=== PATIENT | male | born 1960 | race Caucasian/White ===

== ENCOUNTER 2020-01-30 09:29 | Emergency (ER) | payer BC, MEDICARE ==
[~2020-01-30] VITALS: Ht 170.2 cm; Wt 55.4 kg
[2020-01-30] MEDS ORDERED: IOHEXOL 350 MG/ML 100 ML VIAL. IV ONE (09:45)
--- NOTE | 2020-01-30 09:47 | RAD ---
EXAM: Head CT without contrast. HISTORY: Code stroke. TECHNIQUE: Computed tomographic images of the head were obtained without contrast. *One or more of the following individualized dose reduction techniques were utilized for this examination: 1. Automated exposure control. 2. Adjustment of the mA and/or kV according to patient size. 3. Use of iterative reconstruction technique. COMPARISON: None. FINDINGS: There is no acute or subacute extra-axial or intraparenchymal hemorrhage. There is no mass effect or midline shift. There is no hydrocephalus. There are areas of decreased attenuation within the cerebral white matter, nonspecific and likely related to chronic small vessel disease. The visualized portions of the orbits, paranasal sinuses and mastoid air cells are unremarkable. No suspicious calvarial lesion is seen. IMPRESSION: 1. No acute intracranial finding. Note is made that MRI is more sensitive for acute infarction. 2. Bilateral cerebral white matter changes, most commonly due to chronic small vessel disease in patients of this age. Findings were communicated to Dr. Luu in the ED at 0940 hours on 01/30/2020. Electronically signed by: Crystal Quezada MD (01/30/2020 9:44 AM) [id number]
[2020-01-30 10:31] LABS: BASO % 1 % (0-3); EOS # 0.3 x10^3/uL (0.0-0.7); EOS % 3 % (0-3); HEMATOCRIT 50.1 % (39.0-53.0); HEMOGLOBIN 16.5 g/dL (13.0-17.5); LYMPH # 2.6 x10^3/uL (1.0-4.8); LYMPH % 32 % (24-48); MEAN CORPUSCULAR HEMOGLOBIN 29 pg (25-35); MEAN CORPUSCULAR HGB CONC 33 g/dL (31-37); MEAN CORPUSCULAR VOLUME 87 fL (79-100); MONO # 0.6 x10^3/uL (0.0-1.1); MONO % 8 % (0-9); NEUT # 4.4 x10^3uL (1.8-7.7); NEUT % 56 % (31-73); PLATELET COUNT 328 x10^3/uL (140-400); RED BLOOD COUNT 5.76 x10^6/uL (4.30-5.70); RED CELL DISTRIBUTION WIDTH 14.6 % (11.5-14.5); WHITE BLOOD COUNT 7.9 x10^3/uL (4.0-11.0)
[2020-01-30 10:45] LABS: CALCIUM 9.4 mg/dL (8.5-10.1); CREATININE 1.4 mg/dL (0.7-1.3); GFR 51.7; POTASSIUM 4.3 mmol/L (3.5-5.1)
[2020-01-30 10:58] LABS: ALBUMIN 3.2 g/dL (3.4-5.0); ALBUMIN/GLOBULIN RATIO 0.8 (1.0-1.7)
--- NOTE | 2020-01-30 11:03 | RAD ---
EXAM: CT Angiogram of the Head and Neck INDICATION: Reason: stroke, SLURRED SPEECH / Spl. Instructions: dont wait on labs per dr san / History: TECHNIQUE: CT images were obtained through the head per standard CTA protocol. Multiplanar and 3D reformatted images were generated from the CT dataset on an independent workstation. All CT scans performed at this facility utilize dose optimization techniques as appropriate to the exam, including the following: Automated exposure control and adjustment of the mA and/or KV according to patient size (this includes techniques or standardized protocols for targeted exams where dose is indication/reason for exam). IV CONTRAST: Administered COMPARISON: Noncontrast head CT same day FINDINGS: CTA HEAD: No high-grade large vessel stenosis, proximal or branch vessel occlusion, aneurysm, or vascular malformation. ANTERIOR CIRCULATION: Anterior and middle cerebral arteries are widely patent. ANTERIOR COMMUNICATING ARTERY: Patent. POSTERIOR COMMUNICATING ARTERIES: Present bilaterally and patent. POSTERIOR CIRCULATION: Vertebral and basilar arteries are widely patent. Bilateral posterior inferior cerebellar arteries (PICAs), anterior inferior cerebellar arteries (AICAs), and superior cerebellar arteries (SCAs) are visualized and patent. OTHER: No abnormal brain parenchymal enhancement. The paranasal sinuses, mastoid air cells, and tympanic cavities are clear. NECK CTA: AORTA: 3 vessel configuration of arch. No dissection or acute aortic injury. No hemodynamically significant great vessel origin stenosis. RIGHT CAROTID: Common and internal carotid arteries are widely patent, without evidence of flow limiting stenosis or dissection. LEFT CAROTID: Common and internal carotid arteries are widely patent, without evidence of flow limiting stenosis or dissection. There is noncalcified luminal plaque results in less than 50 percent stenosis of the proximal left cervical ICA.. VERTEBRAL ARTERIES: Codominant. No evidence of dissection or flow limiting stenosis. SUBCLAVIAN ARTERIES:Subclavian arteries are patent without stenosis. SOFT TISSUES: Soft tissues are unremarkable. Lung apices are clear. Disc degenerative change in the cervical spine is present at multiple levels, most conspicuously at C3-C4 and at C7-T1. Where applicable, evaluation of ICA stenosis was performed using NASCET criteria, where the site of greatest stenosis is compared to the diameter of the ICA distal to the carotid bulb. IMPRESSION: No significant vascular abnormality on CTA of the head and neck. Electronically signed by: Greg Mackay MD (01/30/2020 11:00 AM) [id number]
--- NOTE | 2020-01-30 12:18 | PHYS DOC ---
Past History Past Medical History: Diabetes Past Surgical History: Other Additional Past Surgical Histo: lower rigth leg amp. Alcohol Use: Occasionally General Adult EDM: Chief Complaint: NEURO SYMPTOMS/DEFICITS HPI: HPI: 59-year-old male presents via EMS as a code stroke. The patient woke up at 4 AM with garbled speech and complaining of left-sided weakness. The patient has had no previous symptoms before this. He continues to have difficulty with speak ing. He is able to move his bilateral extremities upper and lower. Patient denies fever or chills. Patient has a history of diabetes and partial amputation of the right leg. Review of Systems: Review of Systems: Constitutional: Denies fever or chills Eyes: Denies change in visual acuity HENT: Denies nasal congestion or sore throat Respiratory: Denies cough or shortness of breath Cardiovascular: Denies chest pain or edema GI: Denies abdominal pain, nausea, vomiting, bloody stools or diarrhea : Denies dysuria Musculoskeletal: Denies back pain or joint pain Integument: Denies rash Neurologic: Garbled speech Endocrine: Denies polyuria or polydipsia Lymphatic: Denies swollen glands Psychiatric: Denies depression or anxiety Heart Score: Risk Factors: Risk Factors: DM, Current or recent (<one month) smoker, HTN, HLP, family history of CAD, obesity. Risk Scores: Score 0 - 3: 2.5% MACE over next 6 weeks - Discharge Home Score 4 - 6: 20.3% MACE over next 6 weeks - Admit for Clinical Observation Score 7 - 10: 72.7% MACE over next 6 weeks - Early Invasive Strategies Current Medications: Current Meds: Current Medications Medications (Trade) Dose Ordered Sig/Sara Start Time Stop Time Status Last Admin Dose Admin Iohexol (Omnipaque 350 Mg/ml) 100 ml 1X ONCE 01/30/20 09:45 01/30/20 09:46 DC 01/30/20 10:03 75 ML Allergies: Allergies: Allergies Coded Allergies Type Severity Reaction Last Updated Verified No Known Drug Allergies 01/30/20 No Physical Exam: PE: Constitutional: Well developed, well nourished, no acute distress, non-toxic appearance. [] HENT: Normocephalic, atraumatic, bilateral external ears normal, oropharynx moist, no oral exudates, nose normal. [] Eyes: PERRLA, EOMI, conjunctiva normal, no discharge. [] Neck: Normal range of motion, no tenderness, supple, no stridor. [] Cardiovascular: Heart rate regular rhythm, no murmur [] Lungs & Thorax: Bilateral breath sounds clear to auscultation [] Abdomen: Bowel sounds normal, soft, no tenderness, no masses, no pulsatile masses. [] Skin: Warm, dry, no erythema, no rash. [] Back: No tenderness, no CVA tenderness. [] Extremities: Right lower extremity partial amputation, moves all extremities. [] Neurologic: See HIHSS [] Psychologic: Affect normal, judgement normal, mood normal. [] Current Patient Data: Labs: Laboratory Tests Test 01/30/20 09:40 01/30/20 10:10 01/30/20 10:16 White Blood Count 7.9 x10^3/uL (4.0-11.0) Red Blood Count 5.76 x10^6/uL (4.30-5.70) H Hemoglobin 16.5 g/dL (13.0-17.5) Hematocrit 50.1 % (39.0-53.0) Mean Corpuscular Volume 87 fL (79-100) Mean Corpuscular Hemoglobin 29 pg (25-35) Mean Corpuscular Hemoglobin Concent 33 g/dL (31-37) Red Cell Distribution Width 14.6 % (11.5-14.5) H Platelet Count 328 x10^3/uL (140-400) Neutrophils (%) (Auto) 56 % (31-73) Lymphocytes (%) (Auto) 32 % (24-48) Monocytes (%) (Auto) 8 % (0-9) Eosinophils (%) (Auto) 3 % (0-3) Basophils (%) (Auto) 1 % (0-3) Neutrophils # (Auto) 4.4 x10^3uL (1.8-7.7) Lymphocytes # (Auto) 2.6 x10^3/uL (1.0-4.8) Monocytes # (Auto) 0.6 x10^3/uL (0.0-1.1) Eosinophils # (Auto) 0.3 x10^3/uL (0.0-0.7) Basophils # (Auto) 0.0 x10^3/uL (0.0-0.2) Prothrombin Time 10.3 SEC (9.4-11.4) Prothrombin Time INR 1.0 (0.9-1.1) Activated Partial Thromboplast Time 24 SEC (23-33) Sodium Level 136 mmol/L (136-145) Potassium Level 4.3 mmol/L (3.5-5.1) Chloride Level 100 mmol/L (98-107) Carbon Dioxide Level 31 mmol/L (21-32) Anion Gap 5 (6-14) L Blood Urea Nitrogen 19 mg/dL (8-26) Creatinine 1.4 mg/dL (0.7-1.3) H Estimated GFR (Cockcroft-Gault) 51.7 BUN/Creatinine Ratio 14 (6-20) Glucose Level 291 mg/dL (70-99) H Calcium Level 9.4 mg/dL (8.5-10.1) Total Bilirubin 1.0 mg/dL (0.2-1.0) Aspartate Amino Transferase (AST) 11 U/L (15-37) L Alanine Aminotransferase (ALT) 10 U/L (16-63) L Alkaline Phosphatase 69 U/L (46-116) Troponin I Quantitative < 0.017 ng/mL (0-0.055) KL-Tys-H-Type Natriuretic Peptide 175 pg/mL (0-124) H Total Protein 7.0 g/dL (6.4-8.2) Albumin 3.2 g/dL (3.4-5.0) L Albumin/Globulin Ratio 0.8 (1.0-1.7) L Glucose (Fingerstick) 262 mg/dL (70-99) H Vital Signs: Vital Signs Date Time Temp Pulse Resp B/P (MAP) Pulse Ox O2 Delivery O2 Flow Rate FiO2 01/30/20 12:05 84 16 163/94 (117) 99 Room Air 01/30/20 10:06 98.2 EKG: EKG: Sinus rhythm, rate 92, normal axis, no ST elevations or depressions. [] Radiology/Procedures: Radiology/Procedures: [] Impressions: XAM: Head CT without contrast. HISTORY: Code stroke. TECHNIQUE: Computed tomographic images of the head were obtained without contrast. *One or more of the following individualized dose reduction techniques were utilized for this examination: 1. Automated exposure control. 2. Adjustment of the mA and/or kV according to patient size. 3. Use of iterative reconstruction technique. COMPARISON: None. FINDINGS: There is no acute or subacute extra-axial or intraparenchymal hemorrhage. There is no mass effect or midline shift. There is no hydrocephalus. There are areas of decreased attenuation within the cerebral white matter, nonspecific and likely related to chronic small vessel disease. The visualized portions of the orbits, paranasal sinuses and mastoid air cells are unremarkable. No suspicious calvarial lesion is seen. IMPRESSION: 1. No acute intracranial finding. Note is made that MRI is more sensitive for acute infarction. 2. Bilateral cerebral white matter changes, most commonly due to chronic small vessel disease in patients of this age. Findings were communicated to Dr. Raphael in the ED at 0940 hours on 01/30/2020. Electronically signed by: Crystal Roth MD (01/30/2020 9:44 AM) [id number] DICTATED AND SIGNED BY: CRYSTAL ROTH MD DATE: 01/30/2044 CC: RONALDO RAPHAEL DO ~ EXAM: CT Angiogram of the Head and Neck INDICATION: Reason: stroke, SLURRED SPEECH / Spl. Instructions: dont wait on labs per dr raphael / History: TECHNIQUE: CT images were obtained through the head per standard CTA protocol. Multiplanar and 3D reformatted images were generated from the CT dataset on an independent workstation. All CT scans performed at this facility utilize dose optimization techniques as appropriate to the exam, including the following: Automated exposure control and adjustment of the mA and/or KV according to patient size (this includes techniques or standardized protocols for targeted exams where dose is indication/reason for exam). IV CONTRAST: Administered COMPARISON: Noncontrast head CT same day FINDINGS: CTA HEAD: No high-grade large vessel stenosis, proximal or branch vessel occlusion, aneurysm, or vascular malformation. ANTERIOR CIRCULATION: Anterior and middle cerebral arteries are widely patent. ANTERIOR COMMUNICATING ARTERY: Patent. POSTERIOR COMMUNICATING ARTERIES: Present bilaterally and patent. POSTERIOR CIRCULATION: Vertebral and basilar arteries are widely patent. Bilateral posterior inferior cerebellar arteries (PICAs), anterior inferior cerebellar arteries (AICAs), and superior cerebellar arteries (SCAs) are visualized and patent. OTHER: No abnormal brain parenchymal enhancement. The paranasal sinuses, mastoid air cells, and tympanic cavities are clear. NECK CTA: AORTA: 3 vessel configuration of arch. No dissection or acute aortic injury. No hemodynamically significant great vessel origin stenosis. RIGHT CAROTID: Common and internal carotid arteries are widely patent, without evidence of flow limiting stenosis or dissection. LEFT CAROTID: Common and internal carotid arteries are widely patent, without evidence of flow limiting stenosis or dissection. There is noncalcified luminal plaque results in less than 50 percent stenosis of the proximal left cervical ICA.. VERTEBRAL ARTERIES: Codominant. No evidence of dissection or flow limiting stenosis. SUBCLAVIAN ARTERIES:Subclavian arteries are patent without stenosis. SOFT TISSUES: Soft tissues are unremarkable. Lung apices are clear. Disc degenerative change in the cervical spine is present at multiple levels, most conspicuously at C3-C4 and at C7-T1. Where applicable, evaluation of ICA stenosis was performed using NASCET criteria, where the site of greatest stenosis is compared to the diameter of the ICA distal to the carotid bulb. IMPRESSION: No significant vascular abnormality on CTA of the head and neck. Electronically signed by: Vitor Mackay MD (01/30/2020 11:00 AM) [id number] DICTATED AND SIGNED BY: VITOR MACKAY MD DATE: 01/30/20 1100 CC: RONALDO RAPHAEL DO; PCP,NO ~ Course & Med Decision Making: Course & Med Decision Making Pertinent Labs and Imaging studies reviewed. (See chart for details) The patient's initial NIH was 3 by nursing staff. When I saw him after his CT scan was a 2. These are for dysarthria and some decreased coordination with the left hand. Head CT is negative for acute findings. CTA of the head and neck are negative for acute findings. See official reads for more details. His labs are significant for an elevated blood sugar but this is consistent with his diabetes. His other labs are unremarkable. I believe the patient has improved from when he first arrived. The family would like him transferred to [facility]. We will attempt to make this transfer. ([facility] has accepted the patient for transfer. Dr. Barron has accepted the patient. He will go by ambulance. [] Ronny Disclaimer: Ronny Disclaimer: This electronic medical record was generated, in whole or in part, using a voice recognition dictation system. NIH Stroke Scale: NIH Stroke Scale Response (Comments) Value Level of Consciousness: 0 Alert/Responsive 0 LOC Questions: 0 Answers both correctly 0 LOC Commands: 0 Performs both tasks 0 Visual: 0 No visual loss 0 Motor - Left Arm 0 No drift 0 Motor - Right Arm 0 No drift 0 Motor - Left Leg 0 No drift 0 Motor: Right Leg 0 No drift 0 Limb Ataxia: 1 One limb 1 Best Language: 0 Normal 0 Dysathria: 1 Mild to moderate 1 Extinction and Inattention: 0 Normal 0 Total 2 Departure Departure: Impression: Primary Impression: Stroke Disposition: 02 XFER SHT-TRM HOSP Condition: STABLE Referrals: PCP,NO (PCP) Justification of Admission: Justification of Admission: Justification of Admission Dx: Yes Stroke - Ischemic: Stroke-Ischemic RONALDO RAPHAEL DO Jan 30, 2020 12:18
[2020-01-30 12:28] LABS: BACTERIA,URINE 0 /HPF (0-FEW); BILIRUBIN,URINE NEG (NEG); CLARITY,URINE CLEAR; COLOR,URINE YELLOW; GLUCOSE,URINE 500 mg/dL (NEG); NITRITE,URINE NEG (NEG); SQUAMOUS EPITHELIAL CELL,UR FEW /LPF; UROBILINOGEN,URINE 0.2 mg/dL (0.2 mg/dL)
--- NOTE | 2020-01-30 13:14 | EKG ---
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
[2020-01-30 14:54] VITALS: BP 110/81
[2020-01-30] MEDS ORDERED: INSULIN LISPRO 300 UNITS/3 ML VIAL. SQ ONE (15:06)
[2020-01-30] MEDS ORDERED: INSULIN REGULAR 100 UNIT/ML 3ML VIAL. IV ONE (15:15)
== END 2020-01-30 15:20 | disposition short-term general hospital (02) ==
LOC: ER 09:29
DX: I63.9 Cerebral infarction, unspecified (principal); R53.1 Weakness; R47.1 Dysarthria and anarthria; E11.9 Type 2 diabetes mellitus without complications
CPT/HCPCS: 36415; 70450; 70496; 70498; 80053; 81001; 82947; 83880; 84484; 85025; 85610; 85730; 93005; 96374; 99285; J1815; Q9967

== ENCOUNTER 2020-03-20 11:15 | Emergency (ER) | payer BC ==
[~2020-03-20] VITALS: Ht 170.2 cm; Wt 55.4 kg
--- NOTE | 2020-03-20 11:23 | PHYS DOC ---
Past History Past Medical History: Diabetes Past Surgical History: Other Additional Past Surgical Histo: lower rigth leg amp. Alcohol Use: Occasionally General Adult EDM: Chief Complaint: NEURO SYMPTOMS/DEFICITS HPI: HPI: 59 yo M PMH DM and CVA, presents the ED with complaints of slurred speech and left upper extremity weakness that started at 4 AM this morning. Patient reports his left upper extremity weakness is chronic but slurred speech is new. Also reports a right-sided headache. States he had the same symptoms except for his headache was in the left side a few months ago and was told he had a stroke. Is not on any anticoagulants, cholesterol medication or daily aspirin. EMR was reviewed and patient was seen January 30, 2020 for slurred speech, CT images including angiography negative. Was transferred to [facility] per pts' request. Review of Systems: Review of Systems: Constitutional: Denies fever or chills Eyes: Denies change in visual acuity HENT: Denies nasal congestion or sore throat Respiratory: Denies cough or shortness of breath Cardiovascular: Denies chest pain or edema GI: Denies abdominal pain, nausea, vomiting, bloody stools or diarrhea : Denies dysuria Musculoskeletal: Denies back pain or joint pain Integument: Denies rash Neurologic: Denies neck stiffness, focal weakness or sensory changes Endocrine: Denies polyuria or polydipsia Lymphatic: Denies swollen glands Psychiatric: Denies depression or anxiety Heart Score: Risk Factors: Risk Factors: DM, Current or recent (<one month) smoker, HTN, HLP, family history of CAD, obesity. Risk Scores: Score 0 - 3: 2.5% MACE over next 6 weeks - Discharge Home Score 4 - 6: 20.3% MACE over next 6 weeks - Admit for Clinical Observation Score 7 - 10: 72.7% MACE over next 6 weeks - Early Invasive Strategies Allergies: Allergies: Allergies Coded Allergies Type Severity Reaction Last Updated Verified No Known Drug Allergies 01/30/20 No Physical Exam: PE: Constitutional: Well developed, well nourished, no acute distress, non-toxic appearance. [] HENT: Normocephalic, atraumatic, bilateral external ears normal, oropharynx moist, no oral exudates, nose normal. [] Eyes: PERRLA, EOMI, conjunctiva normal, no discharge. [] Neck: Normal range of motion, no tenderness, supple, no stridor. [] Cardiovascular:Heart rate regular rhythm, no murmur [] Lungs & Thorax: Bilateral breath sounds clear to auscultation [] Abdomen: Bowel sounds normal, soft, no tenderness, no masses, no pulsatile masses. [] Skin: Warm, dry, no erythema, no rash. [] Back: No tenderness, no CVA tenderness. [] Extremities: No tenderness, no cyanosis, no clubbing, ROM intact, no edema. [] Neurologic: Alert and oriented X 3, normal motor function, normal sensory function, no focal deficits noted. [] Psychologic: Affect normal, judgement normal, mood normal. [] EKG: EKG: Sinus rhythm at 89 bpm, normal intervals, no axis deviation, inferior lead T wave abnormality, no ST elevations Radiology/Procedures: Radiology/Procedures: []IMAGING REPORT Signed PATIENT: PILAR ELLIOTTOUNT: [id number] : 1960 LOCATION: ER AGE: 59 SEX: M EXAM STATUS: REG ER ORD. PHYSICIAN: JUAQUIN BLAKELY DO REASON: LUE weakness, slurred speech PROCEDURE: CT HEAD WO CONTRAST EXAM: CT Head without IV contrast INDICATION: Reason: LUE weakness, slurred speech / Spl. Instructions: / History: TECHNIQUE: Multi-detector row CT images were obtained of the head without the use of IV contrast. All CT scans performed at this facility utilize dose optimization techniques as appropriate to the exam, including the following: Automated exposure control and adjustment of the mA and/or KV according to patient size (this includes techniques or standardized protocols for targeted exams where dose is indication/reason for exam). COMPARISON: 01/30/[address] FINDINGS: BRAIN PARENCHYMA: No evidence of acute intraparenchymal hemorrhage or infarct. Stable white matter low density compatible with chronic ischemic microvascular change. VENTRICLES & EXTRA-AXIAL SPACES: Ventricles are within normal limits. Basilar cisterns are patent. No pathologic extra-axial fluid collection or mass. ORBITS: Orbital contents are unremarkable. SINUSES: Visualized paranasal sinuses and mastoid air cells are clear. OSSEOUS & SOFT TISSUES: Calvarium and skull base are intact. IMPRESSION: No acute intracranial pathology. Electronically signed by: Vitor Mackay MD (03/20/2020 12:00 PM) [id number] DICTATED AND SIGNED BY: VITOR MACKAY MD DATE: 03/20/20 1200 CC: PCP,DAVID; JUAQUIN BLAKELY DO ~ IMAGING REPORT Signed PATIENT: PILAR ELLIOTTOUNT: [id number] : 1960 LOCATION: ER AGE: 59 SEX: M EXAM STATUS: REG ER ORD. PHYSICIAN: JUAQUIN BLAKELY DO REASON: LUE weakness, slurred speech PROCEDURE: CT ANGIOGRAPHY HEAD AND NECK EXAM: CT Angiogram of the Head and Neck INDICATION: Reason: LUE weakness, slurred speech / Spl. Instructions: / History: TECHNIQUE: CT images were obtained through the head per standard CTA protocol. Multiplanar and 3D reformatted images were generated from the CT dataset on an independent workstation. All CT scans performed at this facility utilize dose optimization techniques as appropriate to the exam, including the following: Automated exposure control and adjustment of the mA and/or KV according to patient size (this includes techniques or standardized protocols for targeted exams where dose is indication/reason for exam). IV CONTRAST: Administered COMPARISON: CT angiogram head and neck of 01/30/2020 FINDINGS: CTA HEAD: No high-grade large vessel stenosis, proximal or branch vessel occlusion, aneurysm, or vascular malformation. Calcified plaque in the bilateral supraclinoid internal carotid arteries are redemonstrated, resulting in no significant stenosis. ANTERIOR CIRCULATION: Anterior and middle cerebral arteries are widely patent. ANTERIOR COMMUNICATING ARTERY: Patent. POSTERIOR COMMUNICATING ARTERIES: Present bilaterally and patent. POSTERIOR CIRCULATION: Vertebral and basilar arteries are widely patent. Bilateral posterior inferior cerebellar arteries (PICAs), anterior inferior cerebellar arteries (AICAs), and superior cerebellar arteries (SCAs) are visualized and patent. OTHER: No abnormal brain parenchymal enhancement. The paranasal sinuses, mastoid air cells, and tympanic cavities are clear. NECK CTA: AORTA: 3 vessel configuration of arch. No dissection or acute aortic injury. No hemodynamically significant great vessel origin stenosis. RIGHT CAROTID: Common and internal carotid arteries are widely patent, without evidence of flow limiting stenosis or dissection. LEFT CAROTID: Common and internal carotid arteries are widely patent, without evidence of flow limiting stenosis or dissection. No change in noncalcified plaque in the proximal left cervical internal carotid artery resulting in less than 50 percent stenosis. VERTEBRAL ARTERIES: Codominant. No evidence of dissection or flow limiting stenosis. SUBCLAVIAN ARTERIES:Subclavian arteries are patent without stenosis. SOFT TISSUES: Soft tissues are unremarkable. Lung apices are clear. Degenerative changes in the cervical spine are redemonstrated. Patulous thoracic esophagus. Where applicable, evaluation of ICA stenosis was performed using NASCET criteria, where the site of greatest stenosis is compared to the diameter of the ICA distal to the carotid bulb. IMPRESSION: Less than 50 percent stenosis in the proximal left cervical internal carotid artery, unchanged in the interval. No flow-limiting stenosis or other acute vascular pathology noted in the arteries of the head and neck. FOR INTERNAL CODING PURPOSES Critical result: Findings discussed with JUAQUIN BLAKELY at 03/20/2020 12:19 PM. RESULT CODE: (C) Impressions: 3 points NIH Stroke Scale (+1-LUE drift/doesn't touch bed, +1-dysarthria, +1-aphasia) Course & Med Decision Making: Course & Med Decision Making Pertinent Labs and Imaging studies reviewed. (See chart for details) Concern for new onset aphasia in the setting of right-sided headache (pt reports prior CVA with LUE residual weakness). CT of the head with no hemorrhagic infarct. CT Angio head and neck concerning for less than 50% left cervical carotid stenosis, no change from prior CT from January. Due to persistent dysarthria will transfer to [facility] (patient request this hospital due to consistency of care) for neurology evaluation and MRI. Patient stable at time of transfer for increase at this plan. Dragon Disclaimer: Dragduc Disclaimer: This electronic medical record was generated, in whole or in part, using a voice recognition dictation system. Departure Departure: Impression: Primary Impression: Dysarthria Additional Impressions: Headache Carotid stenosis Disposition: 05 DC/TRF OTHER TYPE INSTITUTI (accepted at [facility], Dr. Montiel/Dr. Kang) Condition: GUARDED Referrals: PCP,DAVID (PCP) JUAQUIN BLAKELY DO Mar 20, 2020 11:23
--- NOTE | 2020-03-20 11:34 | EKG ---
[address] [address] Test Date: 2020-03-20 Test Time: 11:24:07 Pat Name: PILAR ELLIOTT Department: Room: Gender: M Olive Picker: : [id number] Requested By: JUAQUIN BLAKELY Order Number: [id number] Reading MD: Measurements Intervals [place] Rate: 89 P: 90 OR: 130 QRS: 90 QRSD: 90 T: 27 QT: 342 QTc: 417 Interpretive Statements SINUS RHYTHM T ABNORMALITY IN INFERIOR LEADS ABNORMAL ECG RI6.02 No previous ECG available for comparison
[2020-03-20 11:41] LABS: BASO # 0.1 x10^3/uL (0.0-0.2); BASO % 1 % (0-3); EOS # 0.3 x10^3/uL (0.0-0.7); EOS % 3 % (0-3); HEMATOCRIT 47.7 % (39.0-53.0); HEMOGLOBIN 15.8 g/dL (13.0-17.5); LYMPH # 3.2 x10^3/uL (1.0-4.8); LYMPH % 31 % (24-48); MEAN CORPUSCULAR HEMOGLOBIN 29 pg (25-35); MEAN CORPUSCULAR HGB CONC 33 g/dL (31-37); MEAN CORPUSCULAR VOLUME 88 fL (79-100); MONO # 0.7 x10^3/uL (0.0-1.1); MONO % 7 % (0-9); NEUT % 58 % (31-73); PLATELET COUNT 273 x10^3/uL (140-400); RED BLOOD COUNT 5.39 x10^6/uL (4.30-5.70); WHITE BLOOD COUNT 10.4 x10^3/uL (4.0-11.0)
[2020-03-20] MEDS ORDERED: IOHEXOL 350 MG/ML 100 ML VIAL. IV ONE (11:45)
[2020-03-20 11:49] LABS: CALCIUM 10.2 mg/dL (8.5-10.1); CREATININE 1.1 mg/dL (0.7-1.3); GFR 68.3; POTASSIUM 4.3 mmol/L (3.5-5.1)
[2020-03-20 11:54] LABS: TOTAL BILIRUBIN 1.2 mg/dL (0.2-1.0)
[2020-03-20] MEDS ORDERED: IV NORMAL SALINE 1,000ML 1,000 ML IV ONE (12:00)
--- NOTE | 2020-03-20 12:03 | RAD ---
EXAM: CT Head without IV contrast INDICATION: Reason: LUE weakness, slurred speech / Spl. Instructions: / History: TECHNIQUE: Multi-detector row CT images were obtained of the head without the use of IV contrast. All CT scans performed at this facility utilize dose optimization techniques as appropriate to the exam, including the following: Automated exposure control and adjustment of the mA and/or KV according to patient size (this includes techniques or standardized protocols for targeted exams where dose is indication/reason for exam). COMPARISON: 01/30/[address] FINDINGS: BRAIN PARENCHYMA: No evidence of acute intraparenchymal hemorrhage or infarct. Stable white matter low density compatible with chronic ischemic microvascular change. VENTRICLES & EXTRA-AXIAL SPACES: Ventricles are within normal limits. Basilar cisterns are patent. No pathologic extra-axial fluid collection or mass. ORBITS: Orbital contents are unremarkable. SINUSES: Visualized paranasal sinuses and mastoid air cells are clear. OSSEOUS & SOFT TISSUES: Calvarium and skull base are intact. IMPRESSION: No acute intracranial pathology. Electronically signed by: Greg Mackay MD (03/20/2020 12:00 PM) [id number]
--- NOTE | 2020-03-20 12:22 | RAD ---
EXAM: CT Angiogram of the Head and Neck INDICATION: Reason: LUE weakness, slurred speech / Spl. Instructions: / History: TECHNIQUE: CT images were obtained through the head per standard CTA protocol. Multiplanar and 3D reformatted images were generated from the CT dataset on an independent workstation. All CT scans performed at this facility utilize dose optimization techniques as appropriate to the exam, including the following: Automated exposure control and adjustment of the mA and/or KV according to patient size (this includes techniques or standardized protocols for targeted exams where dose is indication/reason for exam). IV CONTRAST: Administered COMPARISON: CT angiogram head and neck of 01/30/2020 FINDINGS: CTA HEAD: No high-grade large vessel stenosis, proximal or branch vessel occlusion, aneurysm, or vascular malformation. Calcified plaque in the bilateral supraclinoid internal carotid arteries are redemonstrated, resulting in no significant stenosis. ANTERIOR CIRCULATION: Anterior and middle cerebral arteries are widely patent. ANTERIOR COMMUNICATING ARTERY: Patent. POSTERIOR COMMUNICATING ARTERIES: Present bilaterally and patent. POSTERIOR CIRCULATION: Vertebral and basilar arteries are widely patent. Bilateral posterior inferior cerebellar arteries (PICAs), anterior inferior cerebellar arteries (AICAs), and superior cerebellar arteries (SCAs) are visualized and patent. OTHER: No abnormal brain parenchymal enhancement. The paranasal sinuses, mastoid air cells, and tympanic cavities are clear. NECK CTA: AORTA: 3 vessel configuration of arch. No dissection or acute aortic injury. No hemodynamically significant great vessel origin stenosis. RIGHT CAROTID: Common and internal carotid arteries are widely patent, without evidence of flow limiting stenosis or dissection. LEFT CAROTID: Common and internal carotid arteries are widely patent, without evidence of flow limiting stenosis or dissection. No change in noncalcified plaque in the proximal left cervical internal carotid artery resulting in less than 50 percent stenosis. VERTEBRAL ARTERIES: Codominant. No evidence of dissection or flow limiting stenosis. SUBCLAVIAN ARTERIES:Subclavian arteries are patent without stenosis. SOFT TISSUES: Soft tissues are unremarkable. Lung apices are clear. Degenerative changes in the cervical spine are redemonstrated. Patulous thoracic esophagus. Where applicable, evaluation of ICA stenosis was performed using NASCET criteria, where the site of greatest stenosis is compared to the diameter of the ICA distal to the carotid bulb. IMPRESSION: Less than 50 percent stenosis in the proximal left cervical internal carotid artery, unchanged in the interval. No flow-limiting stenosis or other acute vascular pathology noted in the arteries of the head and neck. FOR INTERNAL CODING PURPOSES Critical result: Findings discussed with JUAQUIN BLAKELY at 03/20/2020 12:19 PM. RESULT CODE: (C) Electronically signed by: Greg Mackay MD (03/20/2020 12:19 PM) [id number]
[2020-03-20] MEDS ORDERED: CONTRAST GIVEN. MC PRN (12:30)
[2020-03-20 14:06] LABS: BARBITURATES NEG (NEG); BENZODIAZEPINES NEG (NEG); CANNABINOIDS POS (NEG); COCAINE NEG (NEG); METHADONE NEG (NEG); OPIATES NEG (NEG); PHENCYCLIDINE NEG (NEG)
[2020-03-20 14:07] LABS: AMPHETAMINE/METHAMPHETAMINE NEG (NEG)
[2020-03-20 14:24] VITALS: BP 167/84
== END 2020-03-20 15:47 | disposition short-term general hospital (02) ==
LOC: ER 11:15
DX: R47.1 Dysarthria and anarthria (principal); I65.22 Occlusion and stenosis of left carotid artery; R51.9 Headache, unspecified; E11.9 Type 2 diabetes mellitus without complications; Z79.82 Long term (current) use of aspirin
CPT/HCPCS: 36415; 70450; 70496; 70498; 80053; 80307; 82947; 84484; 85025; 85610; 85730; 93005; 96360; 99285; J7030; Q9967

== ENCOUNTER 2020-12-22 13:08 | Emergency (ER) | payer BC ==
[~2020-12-22] VITALS: Ht 170.2 cm; Wt 55.4 kg
[2020-12-22 13:14] VITALS: BP 153/67
[2020-12-22 15:01] LABS: CLARITY,URINE CLOUDY; COLOR,URINE RED
[2020-12-22 15:03] LABS: RBC,URINE TNTC /HPF (0-2); SQUAMOUS EPITHELIAL CELL,UR OCC /LPF
[2020-12-22 15:04] LABS: BACTERIA,URINE MANY /HPF (0-FEW); WBC,URINE 20-40 /HPF (0-4)
[2020-12-22] MEDS ORDERED: cefTRIAXone IM 1 GM VIAL IM ONE (16:15)
[2020-12-22] MEDS ORDERED: NITR100C62 PO (16:23)
--- NOTE | 2020-12-22 16:23 | PHYS DOC ---
Past History Past Medical History: Diabetes, Stroke, TIA Past Surgical History: Other Additional Past Surgical Histo: lower rigth leg amp. Alcohol Use: None General Adult EDM: Chief Complaint: BLOOD IN URINE HPI: HPI: 60-year-old male presents with hematuria. The patient had a bladder infection a little over a month ago where he had hematuria and was admitted to the hospital. He was treated with the antibiotics and his urine completely cleared up for least the last 2 weeks. Yesterday, the patient had some black sediment in his urine followed by bright red blood. He continues to have bright red blood today. He does not want to wait like last time in case this is another infection. He is [facility] to [facility] in the next couple of weeks. He denies fever or chills. He has no back pain or flank pain. Review of Systems: Review of Systems: Constitutional: Denies fever or chills Eyes: Denies change in visual acuity HENT: Denies nasal congestion or sore throat Respiratory: Denies cough or shortness of breath Cardiovascular: Denies chest pain or edema GI: Denies abdominal pain, nausea, vomiting, bloody stools or diarrhea : Hematuria Musculoskeletal: Denies back pain or joint pain Integument: Denies rash Neurologic: Denies headache, focal weakness or sensory changes Endocrine: Denies polyuria or polydipsia Lymphatic: Denies swollen glands Psychiatric: Denies depression or anxiety Current Medications: Current Meds: Current Medications Medications (Trade) Dose Ordered Sig/Sara Start Time Stop Time Status Last Admin Dose Admin Ceftriaxone Sodium (Rocephin Im) 1 gm 1X ONCE 12/22/20 16:15 12/22/20 16:16 DC Allergies: Allergies: Allergies Coded Allergies Type Severity Reaction Last Updated Verified No Known Drug Allergies 01/30/20 No Physical Exam: PE: Constitutional: Well developed, well nourished, no acute distress, non-toxic appearance. [] HENT: Normocephalic, atraumatic, bilateral external ears normal, oropharynx moist, no oral exudates, nose normal. [] Eyes: PERRLA, EOMI, conjunctiva normal, no discharge. [] Neck: Normal range of motion, no tenderness, supple, no stridor. [] Cardiovascular:Heart rate regular rhythm, no murmur [] Lungs & Thorax: Bilateral breath sounds clear to auscultation [] Abdomen: Bowel sounds normal, soft, no tenderness, no masses, no pulsatile masses. [] Skin: Warm, dry, no erythema, no rash. [] Back: No tenderness, no CVA tenderness. [] Extremities: No tenderness, no cyanosis, no clubbing, ROM intact, no edema. [] Neurologic: Alert and oriented X 3, normal motor function, normal sensory function, no focal deficits noted. [] Psychologic: Affect normal, judgement normal, mood normal. [] Current Patient Data: Labs: Laboratory Tests Test 12/22/20 13:49 Urine Collection Type Unknown Urine Color Red Urine Clarity Cloudy Urine pH Urine Specific Tucker Urine Protein (NEG-TRACE) Urine Glucose (UA) mg/dL (NEG) Urine Ketones (Stick) mg/dL (NEG) Urine Blood (NEG) Urine Nitrite (NEG) Urine Bilirubin (NEG) Urine Urobilinogen Dipstick mg/dL (0.2 mg/dL) Urine Leukocyte Esterase (NEG) Urine RBC Tntc /HPF (0-2) Urine WBC 20-40 /HPF (0-4) Urine Squamous Epithelial Cells Occ /LPF Urine Bacteria Many /HPF (0-FEW) Vital Signs: Vital Signs Date Time Temp Pulse Resp B/P (MAP) Pulse Ox O2 Delivery O2 Flow Rate FiO2 12/22/20 13:14 96.8 73 18 153/67 97 Room Air EKG: EKG: [] Radiology/Procedures: Radiology/Procedures: [] Heart Score: C/O Chest Pain: N/A Risk Factors: Risk Factors: DM, Current or recent (<one month) smoker, HTN, HLP, family history of CAD, obesity. Risk Scores: Score 0 - 3: 2.5% MACE over next 6 weeks - Discharge Home Score 4 - 6: 20.3% MACE over next 6 weeks - Admit for Clinical Observation Score 7 - 10: 72.7% MACE over next 6 weeks - Early Invasive Strategies Course & Med Decision Making: Course & Med Decision Making Pertinent Labs and Imaging studies reviewed. (See chart for details) The patient's urinalysis is significant for blood. It makes the rest of the urinalysis difficult. He does have a significant number of white blood cells. I will treat him with a gram of Rocephin IM followed by 7 days of Macrobid. If this does not improve in the next couple of days, the patient may need to be admitted for IV antibiotics and more urgent evaluation by urology. Patient states verbal understanding. He will follow-up to get his appointment with urology soon as possible. He is in agreement with being discharged home. If his condition worsens or new symptoms develop he will return the emergency room. He is stable for discharge at this time. [] Dragon Disclaimer: Dragon Disclaimer: This electronic medical record was generated, in whole or in part, using a voice recognition dictation system. Departure Departure: Impression: Primary Impression: Hematuria Qualified Codes: R31.0 - Gross hematuria Additional Impression: UTI (urinary tract infection) Disposition: HOME / SELF CARE / HOMELESS Condition: STABLE Referrals: PCP,DAVID (PCP) Patient Instructions: Hematuria, Adult, Urinary Tract Infection, [id number] Scripts Nitrofurantoin Monohyd/M-Cryst (MACROBID 100 MG CAPSULE) 100 Mg Capsule 1 CAP PO BID for UTI for 7 Days, #14 CAP 0 Refills Prov: RONALDO RAPHAEL DO 12/22/20 RONALDO RAPHAEL DO Dec 22, 2020 16:23
== END 2020-12-22 17:29 | disposition home or self-care (01) ==
LOC: ER 13:08
DX: N39.0 Urinary tract infection, site not specified (principal); R31.0 Gross hematuria; E11.9 Type 2 diabetes mellitus without complications; Z86.73 Personal history of transient ischemic attack (TIA), and cerebral infarction without residual deficits
CPT/HCPCS: 81001; 96372; 99283; J0696

== ENCOUNTER 2021-04-19 15:40 | Inpatient (IN) | payer MEDICARE, BC ==
[~2021-04-19] VITALS: Ht 188 cm; Wt 69.9 kg
[~2021-04-19 15:40] MED LIST: NITR100C62 PO
--- NOTE | 2021-04-19 16:02 | RAD ---
CT HEAD INDICATION: Reason: slurred speech, left lower extremity weakness / COMPARISON: None Available. Exposure: One or more of the following individualized dose reduction techniques were utilized for thi s examination: 1. Automated exposure control 2. Adjustment of the mA and/or kV according to patient size 3. Use of iterative reconstruction technique TECHNIQUE: 5 mm contiguous axial images were obtained from the skull base to the vertex in both bone and soft tissue algorithm. FINDINGS: No abnormal attenuation within the brain parenchyma. No evidence of acute intracranial hemorrhage. No extra-axial fluid collections. No mass effect or midline shift. Ventricular size is appropriate. Basal cisterns are patent. No fractures identified.Burris-white differentiation is preserved.Globes and orbits are within normal l imits. Paranasal sinuses and mastoid air cells are clear. IMPRESSION: No acute intracranial findings. FOR INTERNAL CODING PURPOSES Critical result: Findings discussed with at 04/19/2021 4:00 PM. RESULT CODE: (C) Electronically signed by: Pa Hannon MD (04/19/2021 4:00 PM) [id number]
--- NOTE | 2021-04-19 16:09 | PHYS DOC ---
Past History Past Medical History: CVA, Depression, Diabetes, High Cholesterol, Stroke, TIA Past Surgical History: Other Additional Past Surgical Histo: lower rigth leg amp. Alcohol Use: None Adult General HPI HPI Patient is a [age] year old [sex] who presents with [] Review of Systems Review of Systems Fourteen body systems of review of systems have been reviewed. See HPI for pertinent positives and negative responses, other jackson all other systems are negative, non-pertinent or non-contributory Allergies Allergies Allergies Coded Allergies Type Severity Reaction Last Updated Verified No Known Drug Allergies 01/30/20 No Physical Exam Physical Exam General: Appears well, non toxic, and comfortable Skin: Warm, dry. Normal for ethnicity. HEENT: Atraumatic. PERRLA. Moist mucous membranes. Neck: Trachea midline. Normal ROM. Respiratory: Normal WOB. CTAB w/o w/r/r. No tachypnea. Cardiovascular: Regular rate and rhythm. Normal peripheral perfusion. No edema. Abdomen: Soft. Non tender. No distension. Back: Normal ROM. Musculoskeletal: No swelling or deformity. Neuro: Alert and oriented x 4. MAEE. GCS 15. Normal FNF. Negative pronator drift. Normal heel to russell. Normal Chanel. CN II-XII intact. Normal strength and sensation. Normal speech. Psych: Normal affect and mood. EKG EKG EKG ordered and interpreted by myself at 1547 hrs. as 67 bpm, unremarkable intervals, no axis deviation, no obvious ischemic findings, no STEMI Radiology/Procedures Radiology/Procedures CT HEAD INDICATION: Reason: slurred speech, left lower extremity weakness / COMPARISON: None Available. Exposure: One or more of the following individualized dose reduction techniques were utilized for this examination: 1. Automated exposure control 2. Adjustment of the mA and/or kV according to patient size 3. Use of iterative reconstruction technique TECHNIQUE: 5 mm contiguous axial images were obtained from the skull base to the vertex in both bone and soft tissue algorithm. FINDINGS: No abnormal attenuation within the brain parenchyma. No evidence of acute intracranial hemorrhage. No extra-axial fluid collections. No mass effect or midline shift. Ventricular size is appropriate. Basal cisterns are patent. No fractures identified.Burris-white differentiation is preserved.Globes and orbits are within normal limits. Paranasal sinuses and mastoid air cells are clear. IMPRESSION: No acute intracranial findings. /////////////////////////////////////////////// Heart Score C/O Chest Pain: No Risk Factors: Risk Factors: DM, Current or recent (<one month) smoker, HTN, HLP, family history of CAD, obesity. Risk Scores: Risk Factors: DM, Current or recent (<one month) smoker, HTN, HLP, family history of CAD, obesity. Course & Med Decision Making Course & Med Decision Making Pertinent Labs and Imaging studies reviewed. (See chart for details) [] Dragon Disclaimer Dragon Disclaimer This electronic medical record was generated, in whole or in part, using a voice recognition dictation system. Departure Departure: Referrals: PCP,DAVID (PCP) MILA LEMONS DO Apr 19, 2021 16:09
[2021-04-19 16:11] LABS: BASO % 1 % (0-3); EOS # 0.3 x10^3/uL (0.0-0.7); EOS % 5 % (0-3); HEMATOCRIT 36.3 % (39.0-53.0); HEMOGLOBIN 11.8 g/dL (13.0-17.5); LYMPH # 2.1 x10^3/uL (1.0-4.8); LYMPH % 29 % (24-48); MEAN CORPUSCULAR HEMOGLOBIN 26 pg (25-35); MEAN CORPUSCULAR HGB CONC 33 g/dL (31-37); MEAN CORPUSCULAR VOLUME 81 fL (79-100); MONO # 0.7 x10^3/uL (0.0-1.1); MONO % 10 % (0-9); NEUT # 4.1 x10^3uL (1.8-7.7); NEUT % 56 % (31-73); PLATELET COUNT 274 x10^3/uL (140-400); RED BLOOD COUNT 4.48 x10^6/uL (4.30-5.70); RED CELL DISTRIBUTION WIDTH 17.4 % (11.5-14.5); WHITE BLOOD COUNT 7.3 x10^3/uL (4.0-11.0)
--- NOTE | 2021-04-19 16:13 | RAD ---
AP chest. HISTORY: Code stroke AP view was taken of the chest. There is a left lower lobe infiltrate suggesting an acute pneumonia. Heart is normal in size. A left pleural effusion is possible. IMPRESSION: 1. Left lower lobe infiltrates. Electronically signed by: Fredrick Pastrana MD (04/19/2021 4:11 PM) [facility]
[2021-04-19] MEDS ORDERED: IOHEXOL 350 MG/ML 100 ML VIAL. IV ONE (16:15)
[2021-04-19 16:18] LABS: CREATININE 1.7 mg/dL (0.7-1.3); GFR 41.2; POTASSIUM 4.6 mmol/L (3.5-5.1)
--- NOTE | 2021-04-19 16:27 | PHYS DOC ---
Past History Past Medical History: CVA, Depression, Diabetes, High Cholesterol, Stroke, TIA Past Surgical History: Other Additional Past Surgical Histo: lower rigth leg amp. Alcohol Use: None Adult General Chief Complaint Chief Complaint: SLURRED SPEECH HPI HPI Patient is a 60-year-old male presenting via EMS for slurred speech. Last known normal was approximately 10:30 AM, greater than 4 hours prior to arrival. Patient denies any known inciting event, trauma, mechanism of injury, ingestion or other exposure which might of precipitated event. States he ate breakfast, had typical morning medications and took a nap. States whenever he woke up from a nap he was normal but shortly after started developing difficulty speaking which was not at his baseline. Denied any other symptoms. Reported symptoms continued, he was able to eat lunch and shortly afterwards, he was on the phone with his daughter who is a nurse and was concerned about patient's speech diffi culties. long term was ultimately notified and EMS was contacted. On arrival, patient was hemodynamically stable with an unremarkable lvabw-ql-vxsw glucose. On arrival to ER, repeat ihwyc-ck-jarx glucose unremarkable with ongoing slurred speech. Denies any other changes in motor or sensory neuro function. No recent illness. No recent major changes in medication Review of Systems Review of Systems Fourteen body systems of review of systems have been reviewed. See HPI for pertinent positives and negative responses, other jackson all other systems are negative, non-pertinent or non-contributory Current Medications Current Medications Current Medications Medications (Trade) Dose Ordered Sig/Sara Start Time Stop Time Status Last Admin Dose Admin Info (Do NOT chart on this entry -- for MONITORING) 1 each PRN DAILY PRN 04/19/21 16:30 04/21/21 16:29 Iohexol (Omnipaque 350 Mg/ml) 100 ml 1X ONCE 04/19/21 16:15 04/19/21 16:19 DC Allergies Allergies Allergies Coded Allergies Type Severity Reaction Last Updated Verified No Known Drug Allergies 01/30/20 No Physical Exam Physical Exam General: Appears well, non toxic, and comfortable Skin: Warm, dry. Normal for ethnicity. HEENT: Atraumatic. PERRLA. Moist mucous membranes. Neck: Trachea midline. Normal ROM. Respiratory: Normal WOB. CTAB w/o w/r/r. No tachypnea. Cardiovascular: Regular rate and rhythm. Normal peripheral perfusion. No edema. Abdomen: Soft. Non tender. No distension. Back: Normal ROM. Musculoskeletal: No swelling or deformity. Well-appearing right BKA present Neuro: Alert and oriented x 4. MAEE. GCS 15. Normal FNF. Negative pronator drift. Normal heel to russell as appropriate by patient's missing right lower ex tremity. Normal Chanel. CN II-XII intact except patient does exhibit dysarthria. Normal strength and sensation. Garbled speech Psych: Normal affect and mood. Current Patient Data Vital Signs Vital Signs Date Time Temp Pulse Resp B/P (MAP) Pulse Ox O2 Delivery O2 Flow Rate FiO2 04/19/21 15:54 97.9 68 18 129/59 (82) 99 Room Air Lab Results Laboratory Tests Test 04/19/21 15:45 White Blood Count 7.3 x10^3/uL Red Blood Count 4.48 x10^6/uL Hemoglobin 11.8 g/dL Hematocrit 36.3 % Mean Corpuscular Volume 81 fL Mean Corpuscular Hemoglobin 26 pg Mean Corpuscular Hemoglobin Concent 33 g/dL Red Cell Distribution Width 17.4 % Platelet Count 274 x10^3/uL Neutrophils (%) (Auto) 56 % Lymphocytes (%) (Auto) 29 % Monocytes (%) (Auto) 10 % Eosinophils (%) (Auto) 5 % Basophils (%) (Auto) 1 % Neutrophils # (Auto) 4.1 x10^3uL Lymphocytes # (Auto) 2.1 x10^3/uL Monocytes # (Auto) 0.7 x10^3/uL Eosinophils # (Auto) 0.3 x10^3/uL Basophils # (Auto) 0.0 x10^3/uL Prothrombin Time 10.3 SEC Prothromb Time International Ratio 1.0 Activated Partial Thromboplast Time 24 SEC Sodium Level 141 mmol/L Potassium Level 4.6 mmol/L Chloride Level 108 mmol/L Carbon Dioxide Level 23 mmol/L Anion Gap 10 Blood Urea Nitrogen 30 mg/dL Creatinine 1.7 mg/dL Estimated GFR (Cockcroft-Gault) 41.2 BUN/Creatinine Ratio 18 Glucose Level 124 mg/dL Calcium Level 9.0 mg/dL Total Bilirubin 0.4 mg/dL Aspartate Amino Transf (AST/SGOT) 20 U/L Alanine Aminotransferase (ALT/SGPT) 27 U/L Alkaline Phosphatase 71 U/L Troponin I High Sensitivity 19 ng/L IJ-Qcf-T-Type Natriuretic Peptide 839 pg/mL Total Protein 6.9 g/dL Albumin 3.1 g/dL Albumin/Globulin Ratio 0.8 Current Medications Medications (Trade) Dose Ordered Sig/Sara Route PRN Reason Start Time Stop Time Status Last Admin Dose Admin Iohexol (Omnipaque 350 Mg/ml) 100 ml 1X ONCE IV 04/19/21 16:15 04/19/21 16:19 DC Info (Do NOT chart on this entry -- for MONITORING) 1 each PRN DAILY PRN MC SEE COMMENTS 04/19/21 16:30 04/21/21 16:29 Sodium Chloride 1,000 ml @ 1,000 mls/hr 1X ONCE IV 04/19/21 16:45 04/19/21 17:44 EKG EKG EKG ordered and interpreted by myself at 1547 hrs. a sinus rhythm at 67 bpm, unremarkable intervals, no axis deviation, no obvious ischemic findings, no STEMI Radiology/Procedures Radiology/Procedures CT HEAD INDICATION: Reason: slurred speech, left lower extremity weakness / COMPARISON: None Available. Exposure: One or more of the following individualized dose reduction techniques were utilized for this examination: 1. Automated exposure control 2. Adjustment of the mA and/or kV according to patient size 3. Use of iterative reconstruction technique TECHNIQUE: 5 mm contiguous axial images were obtained from the skull base to the vertex in both bone and soft tissue algorithm. FINDINGS: No abnormal attenuation within the brain parenchyma. No evidence of acute intracranial hemorrhage. No extra-axial fluid collections. No mass effect or midline shift. Ventricular size is appropriate. Basal cisterns are patent. No fractures identified.Burris-white differentiation is preserved.Globes and orbits are within normal limits. Paranasal sinuses and mastoid air cells are clear. IMPRESSION: No acute intracranial findings. //////////////// AP chest. HISTORY: Code stroke AP view was taken of the chest. There is a left lower lobe infiltrate suggesting an acute pneumonia. Heart is normal in size. A left pleural effusion is possible. IMPRESSION: 1. Left lower lobe infiltrates. Electronically signed by: Fredrick Pastrana MD (04/19/2021 4:11 PM) [facility] //////////////////////////////// CTA HEAD AND NECK W/WO CONTRAST dated 04/19/2021 3:45 PM Indication:Reason: slurred speech, lle weakness / Spl. Instructions: / History: Comparison: No comparison is available. Technique: Thin section CT images were performed through the neck and head using infusion of 99 mL Omnipaque 350. Multiplanar and 3-D reformations were obtained. Carotid stenoses in the neck were graded per NASCET criteria. One or more of the following individualized dose reduction techniques were utilized for this examination: 1. Automated exposure control 2. Adjustment of the mA and/or kV according to patient size 3. Use of iterative reconstruction technique Findings: CTA neck: There is the standard branching pattern of the great vessels. The common carotid artery show no cystic in plaque or narrowing. There is mild plaque at the carotid bulbs without evidence of stenosis. The internal carotid arteries show no significant abnormality in their cervical segments. Both vertebral arteries are patent and are similar in caliber. The subclavian arteries show no significant abnormality. Although this study was not performed to evaluate other structures, no mass or adenopathy is seen in the neck. The airway appears normal. The salivary glands and thyroid show no abnormality. The lung apices and paranasal sinuses are clear. There is some patchy opacification of the mastoid air cells, right greater than left. CTA HEAD: The distal vertebral arteries are patent and appear normal extending to their confluence. The basilar artery and internal carotid arteries are patent extending through the skull base to the brain. There is some calcified plaque along the internal carotid arteries at the skull base. The degree of calcification somewhat limits evaluation for narrowing, but there does not appear to be occlusion or high-grade stenosis. The anterior, middle and posterior cerebral branches are patent bilaterally. They show no apparent abnormality extending to their major branch points. The visualized cerebellar branches appear normal. No abnormal vascularity is seen. IMPRESSION: There is some atherosclerosis. No significant stenosis is seen and there is no apparent large vessel occlusion. Electronically signed by: Elgin Peoples Jr., MD (04/19/2021 4:27 PM) [id number] Heart Score C/O Chest Pain: No HEART Score for Chest Pain: HEART Score for Chest Pain Response (Comments) Value History Slighlty/Non-Suspicious 0 ECG Normal 0 Age >45 - < 65 1 Risk Factors >3 Risk Factors or Hx CAD 2 Troponin < Normal Limit 0 Total 3 Risk Factors: Risk Factors: DM, Current or recent (<one month) smoker, HTN, HLP, family history of CAD, obesity. Risk Scores: Risk Factors: DM, Current or recent (<one month) smoker, HTN, HLP, family history of CAD, obesity. Course & Med Decision Making Course & Med Decision Making ABCs and guffq-lr-gnho glucose unremarkable. NIH stroke scale 1 for speech o nly. Outside 4-hour window of onset for TPA use. Subsequent comprehensive work-up obtained and grossly unremarkable. Patient on appropriate medical therapy that includes aspirin, Plavix and high intensity statin. Patient still having difficulty with speech on numerous repeat examinations. Neurologist contacted and case reviewed, he was happy with current work-up and recommended need for hospitalization. He will need PT, OT, swallow study prior to p.o. intake etc. I contacted hospitalist and discussed need for hospitalization for further inpatient medical management, patient accepted under care of Dr. Rodriguez I updated patient and daughter at bedside on diagnosis, entirety of ER findings and need for hospitalization for which they were amenable. All questions and concerns addressed prior to admission. Dragon Disclaimer Dragon Disclaimer This electronic medical record was generated, in whole or in part, using a voice recognition dictation system. Departure Departure: Impression: Primary Impression: Dysarthria due to acute cerebrovascular accident (CVA) Disposition: ADMITTED INPATIENT Admitting Physician: Dominic Rodriguez Condition: STABLE Referrals: PCP,DAVID (PCP) MILA LEMONS DO Apr 19, 2021 16:27
--- NOTE | 2021-04-19 16:29 | RAD ---
CTA HEAD AND NECK W/WO CONTRAST dated 04/19/2021 3:45 PM Indication:Reason: slurred speech, lle weakness / Spl. Instructions: / History: Comparison: No comparison is available. Technique: Thin section CT images were performed through the neck and head using infusion of 99 mL Om nipaque 350. Multiplanar and 3-D reformations were obtained. Carotid stenoses in the neck were graded per NASCET criteria. One or more of the following individualized dose reduction techniques were utilized for this examinat ion: 1. Automated exposure control 2. Adjustment of the mA and/or kV according to patient size 3. Use of iterative reconstruction technique Findings: CTA neck: There is the standard branching pattern of the great vessels. The common carotid artery melanie w no cystic in plaque or narrowing. There is mild plaque at the carotid bulbs without evidence of kamaljit nosis. The internal carotid arteries show no significant abnormality in their cervical segments. Both vertebral arteries are patent and are similar in caliber. The subclavian arteries show no significan t abnormality. Although this study was not performed to evaluate other structures, no mass or adenopathy is seen in the neck. The airway appears normal. The salivary glands and thyroid show no abnormality. The lung ap ices and paranasal sinuses are clear. There is some patchy opacification of the mastoid air cells, ri ght greater than left. CTA HEAD: The distal vertebral arteries are patent and appear normal extending to their confluence. T he basilar artery and internal carotid arteries are patent extending through the skull base to the br ain. There is some calcified plaque along the internal carotid arteries at the skull base. The degree of calcification somewhat limits evaluation for narrowing, but there does not appear to be occlusion or high-grade stenosis. The anterior, middle and posterior cerebral branches are patent bilaterally. They show no apparent abnormality extending to their major branch points. The visualized cerebellar branches appear normal. No abnormal vascularity is seen. IMPRESSION: There is some atherosclerosis. No significant stenosis is seen and there is no apparent large vessel occlusion. Electronically signed by: Elgin Peoples Jr., MD (04/19/2021 4:27 PM) [id number]
[2021-04-19 16:30] LABS: ALBUMIN 3.1 g/dL (3.4-5.0); ALBUMIN/GLOBULIN RATIO 0.8 (1.0-1.7); TOTAL BILIRUBIN 0.4 mg/dL (0.2-1.0); TOTAL PROTEIN 6.9 g/dL (6.4-8.2)
[2021-04-19] MEDS ORDERED: CONTRAST GIVEN. MC PRN (16:30)
[2021-04-19] MEDS ORDERED: IV NORMAL SALINE 1,000ML 1,000 ML IV ONE (16:45)
[2021-04-19] MEDS ORDERED: NITROGLYCERIN SUBLINGUAL 0.4 MG BOTTLE OF 25. SL PRN (17:15)
[2021-04-19] MEDS ORDERED: AZITHROMYCIN 500 MG VIAL. IV ONE (18:08)
[2021-04-19] MEDS ORDERED: cefTRIAXone SODIUM 1 GM VIAL ONE (18:08)
[2021-04-19] MEDS ORDERED: AZITHROMYCIN 250 MG TABLET. PO ONE (18:15)
--- NOTE | 2021-04-19 18:15 | EKG ---
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
[2021-04-19 19:00] VITALS: BP 171/78
[2021-04-19] MEDS ORDERED: POLY2500 PO (19:59)
[2021-04-19] MEDS ORDERED: ATOR40TA PO (19:59)
[2021-04-19] MEDS ORDERED: TAMS0.4C97 PO (19:59)
[2021-04-19] MEDS ORDERED: ERGO500090 PO (19:59)
[2021-04-19] MEDS ORDERED: METO25TA4 PO (19:59)
[2021-04-19] MEDS ORDERED: ACET500T68 PO (19:59)
[2021-04-19] MEDS ORDERED: INSU100V31 SQ (19:59)
[2021-04-19] MEDS ORDERED: ASPI-889 PO (19:59)
[2021-04-19] MEDS ORDERED: CALC500T31 PO (19:59)
[2021-04-19] MEDS ORDERED: CLOP75TA57 PO (19:59)
[2021-04-19] MEDS ORDERED: HYDR-2868 PO (19:59)
[2021-04-19] MEDS ORDERED: AMLO-187 PO (19:59)
[2021-04-19] MEDS ORDERED: SENN1TAB62 PO (19:59)
[2021-04-19] MEDS ORDERED: FINA5TAB4 PO (19:59)
[2021-04-19] MEDS ORDERED: SERT50TA PO (19:59)
[2021-04-19] MEDS ORDERED: GABA-585 PO (19:59)
--- NOTE | 2021-04-19 20:47 | NUR ---
The patient, PILAR ELLIOTT, 60 y/o, M admitted by RHONDA PADGETT MD, was given written information regarding hospital policies, unit procedures and contact persons. Valuables were checked and vital signs obtained. Reviewed with PT his PMH, PSH, SH, FH and medications. PT states he noticed slurring (as well as his sister) while they were talking on the phone around 1400. PT noted by staff at [facility] to have slurring of speech with trouble findings words. PT noted to be slurring words one in every 5 words. phoned for continuation of medications.
[2021-04-19] MEDS ORDERED: INSU100V13 SQ (20:48)
[2021-04-19] MEDS ORDERED: POLYETHYLENE GLYCOL 3350 17 GM PACKET. PO PRN (21:00)
[2021-04-19] MEDS: hydrALAZINE 25 MG TABLET PO SCH (21:29)
[2021-04-19] MEDS: ATORVASTATIN CALCIUM 20 MG TABLET PO SCH (21:29)
[2021-04-19] MEDS: INSULIN GLARGINE SYRINGE. SQ SCH (21:30)
[2021-04-19] MEDS: METOPROLOL TART IMMED RELEASE 25 MG TABLET. PO SCH (21:30)
[2021-04-19 23:34] LABS: BILIRUBIN,URINE NEG (NEG); CLARITY,URINE HAZY; COLOR,URINE YELLOW; GLUCOSE,URINE NEG (NEG)
[2021-04-19 23:35] LABS: BACTERIA,URINE MANY /HPF (0-FEW); NITRITE,URINE NEG (NEG); SQUAMOUS EPITHELIAL CELL,UR OCC /LPF; UROBILINOGEN,URINE 0.2 mg/dL (0.2 mg/dL); WBC,URINE >40 /HPF (0-4)
[2021-04-19 23:40] VITALS: BP 168/73
[2021-04-20] MEDS: CLOPIDOGREL BISULFATE 75 MG TABLET PO SCH (07:40)
[2021-04-20] MEDS: ASPIRIN ENTERIC COATED 81 MG TABLET.DR. PO SCH (07:40)
[2021-04-20] MEDS: FINASTERIDE 5 MG TABLET. PO SCH (07:40)
[2021-04-20] MEDS: amLODIPine BESYLATE 10 MG TABLET PO SCH (07:40)
[2021-04-20] MEDS: SERTRALINE 50 MG TABLET. PO SCH (07:40)
[2021-04-20] MEDS: METOPROLOL TART IMMED RELEASE 25 MG TABLET. PO SCH ×2 (07:40→20:37)
[2021-04-20] MEDS: hydrALAZINE 25 MG TABLET PO SCH ×3 (07:40→20:37)
[2021-04-20] MEDS: TAMSULOSIN 0.4 MG CAP.ER.24H. PO SCH (07:41)
[2021-04-20 08:00] VITALS: BP 169/77
[2021-04-20] MEDS: INSULIN LISPRO 300 UNITS/3 ML VIAL. SQ SCH ×3 (09:41→17:26)
[2021-04-20] MEDS: INSULIN GLARGINE SYRINGE. SQ SCH ×2 (09:42→20:37)
--- NOTE | 2021-04-20 10:16 | HP ---
DATE OF SERVICE: 04/20/2021 ADMIT DATE: 04/19/2021 ATTENDING PHYSICIAN: Dr. Rodriguez. CHIEF COMPLAINT: Slurred speech. HISTORY OF PRESENT ILLNESS: The patient is a 60-year-old gentleman, currently a correction resident, well known to us from previous admission. He has significant vascular disease, old stroke with residual dysarthria. He also has diabetes and hyperlipidemia. The patient had slurred speech. It started at 10:30 yesterday morning, 4 hours prior to arrival. By the time he got to the ED, his symptoms improved. CT of the head was negative for any new strokes. His NIH stroke scale had come down and was at 1. He was not deemed a candidate for TPA. He was on aspirin, Plavix, and statin agents. Dr. Gandara, who had seen him in consultation, was consulted. He recommended admission for further treatment and evaluation. PAST MEDICAL HISTORY: Significant for vascular disease. He had a right jlfar-wml-[id number] amputation due to peripheral vascular disease. He has had diabetic foot ulcer on the left side. He has a previous stroke with residual deficits, clinical depression, type 2 diabetes, hyperlipidemia, old stroke and current TIA. ALLERGIES: He has no known drug allergies. SOCIAL HISTORY: He had been a smoker in the past. No alcohol use. PAST SURGICAL HISTORY: Right BKA. CURRENT MEDICATIONS: Reviewed. Prior to coming in, the patient was taking Tylenol, amlodipine, aspirin, Lipitor, calcium carbonate, Plavix 75 mg daily, finasteride, Neurontin, hydralazine, insulin regular and Lantus, metoprolol, MiraLax, senna, Zoloft, and Flomax. FAMILY HISTORY: Noncontributory. REVIEW OF SYSTEMS: He has been in a correction since July. [facility] Warner is his primary care doctor. No nausea, vomiting, or COVID exposure. All other systems were reviewed and determined to be negative. PHYSICAL EXAMINATION: GENERAL: When I saw him, this is a pleasant, middle-aged gentleman. VITAL SIGNS: Initial vital signs showed a blood pressure of 168/73, pulse is regular. He was afebrile. Oxygen saturation 96% on room air. HEENT: Head is without trauma. Pupils are reactive. Sclerae nonicteric. Oropharynx clear. NECK: Supple, no bruits. LUNGS: Clear to auscultation. CARDIOVASCULAR SYSTEM: Showed regular heart tones. No gallops. ABDOMEN: Soft. EXTREMITIES: Showed surgical absence of the right leg bepak-psl-egjg, stump is clean. Left leg shows no edema or cyanosis. SKIN: Warm and dry. NEUROLOGIC: Speech: His speech is back to baseline. He has occasional slurring. He did not have any word expressive aphasia. No focal deficits identified. Branch Manager Trainee were intact and symmetrical. PERTINENT LABORATORY AND X-RAY STUDIES: The admission hemoglobin was 11.8 g/dL with a white count of 7500. His creatinine is 1.7 mg percent with a BUN of 30. Nonfasting blood sugar 124 mg/dL. BNP was 839. The patient had a head and neck CT and CT angiogram. There is arterial sclerosis, small vessel disease, and no significant stenosis seen in the large vessels. There are no new strokes or bleeds identified. ASSESSMENT: 1. A 60-year-old gentleman, correction resident with slurred speech, probable transient ischemic attack symptom had improved by the time he got to the ED. 2. Old cerebrovascular accident with residual deficits. 3. Peripheral vascular disease with previous right emwdm-hfg-ucmx amputation. 4. Diabetes, insulin dependent. 5. Clinical depression. 6. Hyperlipidemia. PLAN: 1. Admit to the inpatient unit. 2. Home meds including the aspirin, Plavix, and statins have been continued. 3. Neurology consultation. Dr. Gandara is aware of the patient, he has seen him before. 4. Physical therapy consult. 5. Occupational therapy consult. 6. Speech therapy consult. MARLY/JAYA DR: Gerri TID: [id number] CC: Jose Warner MD
--- NOTE | 2021-04-20 12:00 | CONS ---
DATE OF CONSULTATION: 04/20/2021 NEUROLOGY CONSULT REFERRING PHYSICIAN: Dr. Rodriguez. REASON FOR CONSULTATION: Rule out TIA versus stroke. HISTORY OF PRESENT ILLNESS: This is a 60-year-old right-handed male who was admitted through Emergency Room after he presented with chief complaints of slurred speech. According to the patient, he woke up at 10:30 a.m. and he ate breakfast and took his medication, then he went to take a nap. On awaking from the nap, he talked to his daughter and he was found to have slurred speech. Daughter, who is a nurse, called the skilled nursing staff and activated EMS who transferred him to the Emergency Room at [facility] where the patient was found to have slurred speech. The patient stated his speech is of his baseline. However, he had similar episodes probably in 11/2020 and in last year as well, described as a TIA. Previous TIAs with the speech articulation problem required speech therapy. He denies headaches, visual disturbances, nausea, vomiting, chest pain, shortness of breath or palpitation. Initial nonenhanced head CT scan revealed no evidence of acute intracranial process and initial CT angio of the head revealed no occlusion of large arteries or aneurysm. A CT angio of the neck revealed no significant stenosis of the carotid arteries or vertebral arteries. According to the patient, his speech now is better, but still slurred a little bit. He also complains of numbness and paresthesia of the hands and left lower extremity. PAST MEDICAL HISTORY: Significant for frequent TIAs and probably stroke, hyperlipidemia, diabetes mellitus, depressions, history of diabetic retinopathy, history of chronic kidney disease. PAST SURGICAL HISTORY: Significant for right below-knee amputation, likely due to peripheral vascular disease. SOCIAL HISTORY: The patient is a smoker. He denies alcohol drinking or illicit drug use. CURRENT HOME MEDICATIONS: Include tamsulosin 0.4 mg daily, sertraline 50 mg p.o. daily, Proscar 5 mg daily, Plavix 75 mg daily, aspirin 81 mg daily, amlodipine 10 mg p.o. daily, insulin lispro, insulin Lantus, Lipitor 40 mg p.o. daily, metoprolol 25 mg b.i.d., hydralazine 25 mg t.i.d., nitroglycerin 0.4 mg sublingually p.r.n. ALLERGIES: No known drug allergies. REVIEW OF SYSTEMS: A 10-point review of system was performed as mentioned above in history of present illness, otherwise unremarkable. PHYSICAL EXAMINATION: GENERAL: A thin male in no acute distress. He weighs 69.9 kilos. VITAL SIGNS: Blood pressure 169/77, respiratory rate of 14, pulse is 68, oxygen saturation is 96% on room air, temperature is 98.3. HEENT: Normocephalic, atraumatic. Otherwise unremarkable. NECK: Supple, negative for carotid bruit, lymphadenopathy or thyromegaly. LUNGS: Diminished breath sounds over the left lower lobe, otherwise no wheezing or rales. CARDIOVASCULAR: Regular rate and rhythm, normal S1, S2. There is no S3, S4 or murmur. ABDOMEN: Soft. Bowel sounds positive. EXTREMITIES: Status post right below-knee amputation and a massive muscle atrophy in the left lower extremity. NEUROLOGIC: Mental status: The patient is alert and oriented x3. Speech is fluent. There is no language dysfunction. Memory, judgment and abstracting thinking are normal. The patient denies hallucination or delusion. Cranial nerves: Visual christiansen are full. The pupils are reactive to light and accommodation. The extraocular movements are intact. There is no nystagmus. There is no facial motor or sensory deficits. Hearing is intact bilaterally. The palate is elevated symmetrically. Sternocleidomastoid muscles are powerful bilaterally. The patient shrugs his shoulders symmetrically, protrudes his tongue in the midline without fasciculation or atrophy. Motor exam: No focal muscle bulk wasting. The tone is normal. The strength is 4/5 throughout. Sensory examination revealed diminished pinprick and light touch senses in patchy distributions in both upper and lower extremities. Deep tendon reflexes were symmetric and hypoactive with absent Achilles responses. Motor: The patient has left foot drop. Gait: The patient uses a walker for ambulation. LABORATORY DATA: CBC revealed blood cells of 7.3 thousand, hemoglobin 11.8, hematocrit 36.3, platelet count 274,000. Chemistry revealed sodium of 141, potassium 4.6, chloride 108, CO2 of 23, BUN 30, creatinine 1.7, glucose 124. BNP is 839. Coagulation is normal. Urinalysis consistent with urinary tract infections with white blood cells greater than 40 and small urinary leukocyte esterase and many bacteria. COVID-19 rapid test is negative. PCR still pending. DIAGNOSTIC: A chest x-ray consistent with left lower lobe infiltrate. CT of the head and CT angio of the head and neck as described in the history of present illness. IMPRESSION: 1. Recurrent onset of slurred speech consistent with speech articulation without language dysfunction and without significant carotid artery disease. 2. Multiple risk factors for transient ischemic attack and stroke including diabetes mellitus, hypertension, hyperlipidemia, and previous transient ischemic attacks and stroke along with smoking. 3. Status post right below-knee amputation. 4. Urinary tract infections and chronic kidney disease. RECOMMENDATIONS: 1. Continue with current management initiated by Dr. Rodriguez including Plavix and aspirin. 2. Speech therapy. 3. Treat the underlying urinary tract infections and pneumonia. 4. Follow up with Dr. Gandara in the office and arrange for EMG/NCS of the upper extremities and left lower extremity. JANESSA/VIRGINIA DR: Tiny TID: [id number]
[2021-04-20 12:02] VITALS: BP 157/70
[2021-04-20 16:45] VITALS: BP 162/69
[2021-04-20 18:57] VITALS: BP 163/72
[2021-04-20] MEDS: ATORVASTATIN CALCIUM 20 MG TABLET PO SCH (20:36)
[2021-04-20 23:16] VITALS: BP 167/76
[2021-04-21 06:05] VITALS: BP 166/74
[2021-04-21] MEDS: FINASTERIDE 5 MG TABLET. PO SCH (07:23)
[2021-04-21] MEDS: SERTRALINE 50 MG TABLET. PO SCH (07:23)
[2021-04-21] MEDS: ASPIRIN ENTERIC COATED 81 MG TABLET.DR. PO SCH (07:23)
[2021-04-21] MEDS: TAMSULOSIN 0.4 MG CAP.ER.24H. PO SCH (07:23)
[2021-04-21] MEDS: hydrALAZINE 25 MG TABLET PO SCH (07:24)
[2021-04-21] MEDS: CLOPIDOGREL BISULFATE 75 MG TABLET PO SCH (07:24)
[2021-04-21] MEDS: amLODIPine BESYLATE 10 MG TABLET PO SCH (07:24)
[2021-04-21 07:25] VITALS: BP 166/74
[2021-04-21] MEDS: METOPROLOL TART IMMED RELEASE 25 MG TABLET. PO SCH (07:25)
[2021-04-21] MEDS: INSULIN LISPRO 300 UNITS/3 ML VIAL. SQ SCH (08:00)
[2021-04-21] MEDS: INSULIN GLARGINE SYRINGE. SQ SCH (08:43)
--- NOTE | 2021-04-21 10:52 | NUR ---
VSS. MARADIAGA. Discharge orders placed this AM. IV discontinued. Pt dressed. [facility] van arrived. Belongings sent with pt. Pt transported via wheelchair to [facility]. Pt discharged @ 1010.
--- NOTE | 2021-04-21 13:01 | DS ---
DATE OF DISCHARGE: 04/21/2021 ATTENDING PHYSICIAN: Dr. Rodriguez. FINAL DISCHARGE DIAGNOSES: 1. Transient ischemic attack. 2. Old cerebrovascular accident with residual deficits. 3. Expressive aphasia. 4. Peripheral vascular disease with right eceov-roz-gyfb amputation. 5. Type 2 diabetes, insulin dependent. 6. Clinical depression. 7. Hyperlipidemia. 8. Hypertension. HISTORY AND PHYSICAL: The patient is a 60-year-old gentleman who has significant vascular disease due to diabetes and lifestyle. He had a [id number]-[id number] amputation on the right. He has been at the long-term since July 2020. He had symptoms of dysarthria. TIA symptoms have basically resolved. NIH score was 1 in the ED. He was not a candidate for TPA. He was admitted overnight for observation and formal neurology consultation. PHYSICAL EXAMINATION: Please see the dictated note. PERTINENT LABORATORY AND X-RAY STUDIES: Admission hemoglobin was 11.8 g/dL with a white count of 7300. Fasting blood sugar in the low 100s. Chemistry panel: Sodium 141 mEq, creatinine 1.7 mg/dL. Transaminases were normal. Cardiac enzymes negative for coronavirus. Serology was negative for coronavirus. COURSE IN THE HOSPITAL: The patient was admitted. He had the obligatory CT of the head, which showed no acute changes. CT angiogram showed no significant obstruction. Symptoms improved back to baseline and formal neurologic consultation per Dr. Gandara is on the chart. He did well by the second hospital day, he was eating, he was ambulating with his prosthesis with minimal assistance. He was ready for discharge back to [facility]. At this time, we made no changes on his medication. They include the following. He will continue his amlodipine daily, aspirin daily, Lipitor, calcium, Plavix 75 mg daily, vitamin D2, finasteride, Neurontin, hydralazine, insulin regular and Lantus, metoprolol, MiraLax, senna, Zoloft and Flomax, dose is unchanged. He is a FULL CODE. His prognosis is guarded. The patient was then discharged from our hospital in stable condition with explicit drug and followup care. Total discharge time spent is 38 minutes. QUETA/FINA DR: Gerri TID: [id number] CC: Jose Warner
--- NOTE | 2021-04-21 16:27 | PN ---
DATE: 04/21/2021 SUBJECTIVE: The patient denies any new medical or neurological complaints. He states that his speech is better, almost back to baseline. He denies chest pain, shortness of breath, palpitation, dysphagia or vertigo. OBJECTIVE: GENERAL: Well-developed, well-nourished male, not in acute distress. VITAL SIGNS: Blood pressure is 166/74, respiratory rate is 16, pulse is 73, oxygen saturation is 97% on room air. HEENT: Normocephalic, atraumatic, otherwise unremarkable. NECK: Supple, negative for carotid bruit, lymphadenopathy or thyromegaly. LUNGS: Clear to A and P. CARDIOVASCULAR: Regular rate and rhythm, normal S1, S2. ABDOMEN: Soft. Bowel sounds positive. EXTREMITIES: Negative for cyanosis, clubbing, or pitting edema, status post right below-knee amputation. NEUROLOGIC: Normal mental status and intact cranial nerves. There is no focal motor or sensory deficit. Deep tendon reflexes were symmetric and hypoactive with absent Achilles response on the left side. GAIT: The patient uses a walker for ambulation. IMPRESSION: 1. Possible transient ischemic attack, as a result presented with slurred speech -- improved with negative CT angio for major artery occlusion or aneurysm without significant carotid artery stenosis bilaterally. 2. Multiple risk factors for transient ischemic attack include smoking, hypertension, hyperlipidemia, diabetes mellitus, recurrent transient ischemic attacks. 3. Status post right below-knee amputation. 4. Urinary tract infection and left lower lobe infiltrates. RECOMMENDATIONS: 1. Continue with current management initiated by Dr. Rodriguez. 2. Continue with physical therapy as tolerated. 3. Follow up with Dr. Gandara after 1 week from discharge and arrange EMG/NCS of the bilateral upper extremity and left lower extremity. JANESSA/[place]/VIS DR: JANESSA/bobo TID: [id number]
== END 2021-04-21 10:10 | DRG 69 ==
LOC: ER 15:40 → 1 SOUTH 17:09
PROVIDERS: ADMIT Hospitalist; ATTEND Hospitalist
DX: G45.9 Transient cerebral ischemic attack, unspecified (principal); N39.0 Urinary tract infection, site not specified; R47.01 Aphasia; E78.00 Pure hypercholesterolemia, unspecified; E11.22 Type 2 diabetes mellitus with diabetic chronic kidney disease; I69.322 Dysarthria following cerebral infarction; E78.5 Hyperlipidemia, unspecified; E11.51 Type 2 diabetes mellitus with diabetic peripheral angiopathy without gangrene; F17.200 Nicotine dependence, unspecified, uncomplicated; F32.A Depression, unspecified; I12.9 Hypertensive chronic kidney disease with stage 1 through stage 4 chronic kidney disease, or unspecified chronic kidney disease; Z20.822 Contact with and (suspected) exposure to COVID-19; N18.9 Chronic kidney disease, unspecified; E11.319 Type 2 diabetes mellitus with unspecified diabetic retinopathy without macular edema; Z89.511 Acquired absence of right leg below knee; Z82.49 Family history of ischemic heart disease and other diseases of the circulatory system; Z79.899 Other long term (current) drug therapy; Z79.82 Long term (current) use of aspirin; Z79.4 Long term (current) use of insulin; Z79.02 Long term (current) use of antithrombotics/antiplatelets
CPT/HCPCS: 36415; 70450; 70496; 70498; 71045; 80053; 81001; 82947; 83880; 84484; 85025; 85610; 85730; 87077; 87086; 87186; 87426; 93005; 96361; 96365; J0696; J1815; U0003; 97530; 99285-25; J7030